=== PATIENT | female | born 1980 | race Caucasian/White ===

== ENCOUNTER 2019-09-28 23:22 | Inpatient (IN) ==
[2019-09-29] MEDS ORDERED: *HR* LORazepam 1 MG TABLET PO PRN (00:33)
[2019-09-29] MEDS ORDERED: traZODone 50 MG TABLET PO PRN (00:33)
[2019-09-29] MEDS ORDERED: *HR* LORazepam 2 MG/ML VIAL IM PRN (00:33)
[2019-09-29] MEDS ORDERED: Ibuprofen 400 MG TABLET PO PRN (00:33)
[2019-09-29] MEDS ORDERED: MOM Conc 10 ML UD.LIQ PO PRN (00:33)
[2019-09-29] MEDS ORDERED: haloperidoL 5 MG TABLET PO PRN (00:33)
[2019-09-29] MEDS ORDERED: Haloperidol Lactate 5 MG/ML VIAL IM PRN (00:33)
[2019-09-29] MEDS ORDERED: Mag Hydrox/Al Hydrox/Simeth 30 ML UDC PO PRN (00:33)
[2019-09-29] MEDS ORDERED: hydrOXYzine pamoate 25 MG CAPSULE PO PRN (00:33)
[2019-09-29] MEDS: Nicotine 21 MG PATCH.TD24 TD SCH (12:12)
[2019-09-29] MEDS ORDERED: Baclofen 10 MG TABLET PO PRN (17:42)
[2019-09-29] MEDS: Gabapentin 400 MG CAPSULE PO SCH ×2 (18:18→20:46)
[2019-09-29] MEDS ORDERED: traZODone 50 MG TABLET PO SCH (21:00)
[2019-09-29] MEDS ORDERED: Gabapentin 400 MG CAPSULE PO SCH (21:00)
[2019-09-30] MEDS: Gabapentin 400 MG CAPSULE PO SCH ×2 (09:06→14:06)
[2019-09-30] MEDS: Nicotine 21 MG PATCH.TD24 TD SCH (09:09)
[2019-09-30 09:28] VITALS: BP 113/81
== END 2019-09-30 16:35 | disposition home or self-care (01) | DRG 817 ==
LOC: EMEROOARM 23:22 → 1ANU 09-29 00:32
PROVIDERS: ADMIT Psychiatry & Neurology Psychiatry; ATTEND Psychiatry & Neurology Psychiatry

== ENCOUNTER 2020-04-11 09:42 | Observation (INO) ==
[2020-04-11] MEDS ORDERED: *HR* HYDROmorphone (PF) 1 MG/ML SYRINGE IVP ONE ×2 (10:25→14:08)
[2020-04-11] MEDS ORDERED: Ondansetron ODT 4 MG TAB.RAPDIS SL PRN (10:27)
[2020-04-11 12:24] LABS: Candida DNA Not Detected (Not Detect); Gardnerella DNA Not Detected (Not Detect); Trichomonas DNA Not Detected (Not Detect)
[2020-04-11] MEDS ORDERED: 0.9 % Sodium Chloride 1,000 ML IVC ONE (14:07)
[2020-04-11] MEDS ORDERED: Ondansetron 4 MG/2 ML VIAL IVP PRN (14:17)
[2020-04-11] MEDS ORDERED: *HR* FentaNYL (PF) 100 MCG/2 ML VIAL ONE ×3 (16:40→19:46)
[2020-04-11] MEDS ORDERED: Lidocaine HCL 4 ML Topical Solution (Laryng-O-Jet Kit Sterile Pak) TP ONE (16:40)
[2020-04-11] MEDS ORDERED: Lidocaine -MPF 2% 2 ML VIAL ONE (16:40)
[2020-04-11] MEDS ORDERED: *HR* Midazolam HCl 2 MG/2 ML VIAL ONE ×2 (16:40→19:57)
[2020-04-11] MEDS ORDERED: *HR* Propofol 200 MG/20 ML VIAL IVP ONE (16:40)
[2020-04-11] MEDS ORDERED: *HR* Rocuronium Bromide 50 MG/5 ML VIAL ONE (16:40)
[2020-04-11] MEDS ORDERED: *HR* Succinylcholine 200 MG/10 ML VIAL IVP ONE (16:42)
[2020-04-11] MEDS ORDERED: Promethazine 6.25 MG in Water for inj. (sterile) 20 ML IVPB PRN (16:59)
[2020-04-11] MEDS ORDERED: *HR* Belladonna Alkaloids/Opium 30 MG RECTAL SUPPOSITORY RC ONE (17:01)
[2020-04-11] MEDS ORDERED: Bupivacaine 0.5%-Epi 1:200,000 50 ML VIAL ONE (17:01)
[2020-04-11] MEDS ORDERED: Acetaminophen IV 1,000 MG/100 ML BAG ONE (17:05)
[2020-04-11] MEDS ORDERED: CeFAZolin Syr 3,000MG/30 ML 3,000 MG/30 ML SYRINGE IVPB ONE (17:17)
[2020-04-11] MEDS ORDERED: Dexamethasone 4 MG/ML VIAL ONE (17:50)
[2020-04-11] MEDS ORDERED: Ondansetron 4 MG/2 ML VIAL ONE (17:50)
[2020-04-11] MEDS ORDERED: Acetaminophen IV 1,000 MG/100 ML BAG IVPB ONE (18:02)
[2020-04-11] MEDS ORDERED: Ketorolac 30 MG/ML VIAL ONE (18:09)
[2020-04-11] MEDS ORDERED: *HR* Labetalol 20 MG/4 ML SYRINGE IVP ONE (18:36)
[2020-04-11] MEDS ORDERED: Sugammadex Sodium 200 MG/2 ML VIAL IV ONE (19:43)
[2020-04-11] MEDS ORDERED: Ipratropium/Albuterol Neb 3 ML ONE (20:00)
[2020-04-11] MEDS: *HR* HYDROmorphone PF 0.5 MG/0.5 ML SYRINGE IVP PRN ×2 (20:10→20:23)
[2020-04-11] MEDS ORDERED: *HR* LORazepam 2 MG/ML VIAL IVP PRN (20:22)
[2020-04-11] MEDS ORDERED: *HR* LORazepam 2 MG/ML VIAL ONE (20:25)
[2020-04-11] MEDS ORDERED: *HR* OxyCODONE Immed Rel 5 MG TABLET PO ONE (20:48)
[2020-04-11] MEDS ORDERED: Gabapentin 400 MG CAPSULE PO SCH (21:00)
[2020-04-11] MEDS ORDERED: Baclofen 10 MG TABLET PO PRN (22:47)
[2020-04-11] MEDS ORDERED: rOPINIRole 1 MG TABLET PO SCH (22:48)
[2020-04-12 00:09] VITALS: BP 101/66
[2020-04-15 07:57] LABS: C. trachomatis by NAA Negative (Negative); N. gonorrhoeae by NAA Negative (Negative)
== END 2020-04-12 00:12 | disposition home or self-care (01) ==
LOC: 1NENUOBS 09:42 → EMEROOARM 09:42 → 1NENUOBS 17:03
PROVIDERS: ADMIT Obstetrics & Gynecology; ATTEND Obstetrics & Gynecology